=== PATIENT | male | born 1960 | race African-American/Black ===

== ENCOUNTER 2017-10-08 03:52 | Emergency (ER) | payer MEDICARE, MEDICAID ==
[~2017-10-08] VITALS: Ht 160 cm; Wt 62.0 kg
[~2017-10-08 03:52] MED LIST: METO50TA; NAPR-571 PO; NORC10TA2; TIZA4 PO
[2017-10-08 04:08] VITALS: BP 161/88; PULSE 63; RESP 16; TEMP 98.6; O2SAT 97
[2017-10-08] MEDS ORDERED: TETANUS/DIPHTHERIA TOXOID ADULT 0.5 ML VIAL IM ONE (05:15)
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
== END 2017-10-08 05:57 | disposition home or self-care (01) ==
LOC: NEPD 03:52
DX: S71.132A Puncture wound without foreign body, left thigh, initial encounter (principal); X99.1XXA Assault by knife, initial encounter; F14.90 Cocaine use, unspecified, uncomplicated; F12.90 Cannabis use, unspecified, uncomplicated; Z23 Encounter for immunization; Z72.0 Tobacco use
CPT/HCPCS: 90471; 90714

== ENCOUNTER 2017-11-13 16:13 | Emergency (ER) | payer MEDICARE, MEDICAID ==
[~2017-11-13] VITALS: Ht 165.1 cm; Wt 60.0 kg
[2017-11-13 16:25] VITALS: BP 163/112; PULSE 97; RESP 15; TEMP 97.8; O2SAT 99
[2017-11-13 21:42] VITALS: BP 136/86; PULSE 67; RESP 16; O2SAT 97
[2017-11-13] MEDS ORDERED: HYDR-3366 PO (21:43)
[2017-11-13] MEDS ORDERED: METO50TA PO (21:43)
--- NOTE | 2017-11-13 22:14 | PD ---
HPI Chief Complaint: Abdominal Pain Time Seen by Provider: 21:39 Travel History International Travel<30 days: No Contact w/Intl Traveler<30days: No Traveled to known affect area: No History of Present Illness HPI Patient is a 57-year-old male who had a hernia repair on the left inguinal 5 years ago at [facility] he said it was not a laser repair and he has had no problem for 5 years. Now patient is coming in because he said he strained listed something heavy a few days ago and now he is feeling pain pressure-like pain in that left inguinal area again there is no swelling the testicle. There is no pain in the testicle however he has got focal pain similar to that when he had prior to the other hernia repair he had 5 years ago. He is hypertensive but otherwise healthy male patient is in no acute distress when I come in the ER into the exam room. He has focal localized left inguinal pain made worse with walking and straining he did not take anything for the pain and he has not seen another doctor for this pain PFSH Past Medical History Asthma: Yes Blood Disorders: No Heart Rhythm Problems: No Cardiac Catheterization: No Cardiovascular Problems: Yes High Cholesterol: No Congestive Heart Failure: No Diabetes: No Diminished Hearing: No Hypertension: Yes Neurologic: Yes (HEAD INJURY AT AGE 13) Immunizations Current: Yes Myocardial Infarction: No Seizures: Yes (DOES NOT TAKE MEDS FOR SEIZURES) Tetanus Vaccination: < 5 Years Influenza Vaccination: No Past Surgical History Surgical History: No Previous Surgery Coronary Artery Bypass Graft: No Social History Alcohol Use: Yes (OCC) Tobacco Use: Yes (5 CIGARETTES A DAY) Substance Use: Yes (cociane, marijuana) Allergies-Medications (Allergen,Severity, Reaction): Coded Allergies: No Known Allergies (Verified Adverse Reaction, Unknown, 11/13/17) Reported Meds & Prescriptions Reported Meds & Active Scripts Active Reported [place] (Hydrocodone-Acetaminophen) 10-325 Mg Tab 1 Tab PO Q4-6H PRN Metoprolol Tartrate 50 Mg Tab 50 Mg PO DAILY Review of Systems Except as stated in HPI: all other systems reviewed are Neg Physical Exam Narrative GENERAL: no acute distress SKIN: Warm and dry. HEAD: Atraumatic. Normocephalic. EYES: Pupils equal and round. No scleral icterus. No injection or drainage. ENT: No nasal bleeding or discharge. Mucous membranes pink and moist. NECK: Trachea midline. No JVD. CARDIOVASCULAR: Regular rate and rhythm. RESPIRATORY: No accessory muscle use. Clear to auscultation. Breath sounds equal bilaterally. GASTROINTESTINAL: Abdomen soft, non-tender, nondistended. Hepatic and splenic margins not palpable. LEFT inguinal area has slight defect and bowel protrudes only with coughing felt on my finger at direct and indirect canal opening MUSCULOSKELETAL: Extremities without clubbing, cyanosis, or edema. No obvious deformities. NEUROLOGICAL: Awake and alert. No obvious cranial nerve deficits. Motor grossly within normal limits. Five out of 5 muscle strength in the arms and legs. Normal speech. PSYCHIATRIC: Appropriate mood and affect; insight and judgment normal. Data Data Last Documented VS Vital Signs Date Time Temp Pulse Resp B/P (MAP) Pulse Ox O2 Delivery O2 Flow Rate FiO2 11/14/17 03:23 11/14/17 01:30 88 16 98 Room Air 11/13/17 16:25 97.8 Orders Orders Complete Blood Count With Diff (11/13/17 22:09) Comprehensive Metabolic Panel (11/13/17 22:09) Urinalysis - C+S If Indicated (11/13/17 22:09) Ct Abd/Pel W Iv Contrast(Rout) (11/13/17 ) Diatrizoate Liq ( Gastroview Liq) (11/13/17 22:15) Oral Contrast - Adult (11/13/17 22:14) Sodium Chlorid 0.9% 500 Ml Inj (Ns 500 M (11/14/17 02:00) Iohexol 350 Inj (Omnipaque 350 Inj) (11/14/17 02:02) Ketorolac Inj (Toradol Inj) (11/14/17 02:45) Ed Discharge Order (11/14/17 03:16) Labs Laboratory Tests Test 11/13/17 22:30 11/14/17 01:00 White Blood Count 7.5 TH/MM3 Red Blood Count 4.49 MIL/MM3 Hemoglobin 13.4 GM/DL Hematocrit 40.6 % Mean Corpuscular Volume 90.4 FL Mean Corpuscular Hemoglobin 29.9 PG Mean Corpuscular Hemoglobin Concent 33.1 % Red Cell Distribution Width 14.5 % Platelet Count 302 TH/MM3 Mean Platelet Volume 7.1 FL Neutrophils (%) (Auto) 56.2 % Lymphocytes (%) (Auto) 31.8 % Monocytes (%) (Auto) 10.6 % Eosinophils (%) (Auto) 0.8 % Basophils (%) (Auto) 0.6 % Neutrophils # (Auto) 4.2 TH/MM3 Lymphocytes # (Auto) 2.4 TH/MM3 Monocytes # (Auto) 0.8 TH/MM3 Eosinophils # (Auto) 0.1 TH/MM3 Basophils # (Auto) 0.0 TH/MM3 CBC Comment DIFF FINAL Differential Comment Blood Urea Nitrogen 17 MG/DL Creatinine 1.51 MG/DL Random Glucose 106 MG/DL Total Protein 6.9 GM/DL Albumin 3.0 GM/DL Calcium Level 8.5 MG/DL Alkaline Phosphatase 90 U/L Aspartate Amino Transf (AST/SGOT) 23 U/L Alanine Aminotransferase (ALT/SGPT) 18 U/L Total Bilirubin 0.2 MG/DL Sodium Level 142 MEQ/L Potassium Level 4.5 MEQ/L Chloride Level 110 MEQ/L Carbon Dioxide Level 27.3 MEQ/L Anion Gap 5 MEQ/L Estimat Glomerular Filtration Rate 58 ML/MIN Urine Color YELLOW Urine Turbidity CLEAR Urine pH 6.5 Urine Specific [place] 1.016 Urine Protein NEG mg/dL Urine Glucose (UA) NEG mg/dL Urine Ketones NEG mg/dL Urine Occult Blood NEG Urine Nitrite NEG Urine Bilirubin NEG Urine Urobilinogen LESS THAN 2.0 MG/DL Urine Leukocyte Esterase NEG Urine RBC 1 /hpf Urine WBC LESS THAN 1 /hpf Microscopic Urinalysis Comment CULT NOT INDICATED MDM Medical Decision Making Medical Screen Exam Complete: Yes Emergency Medical Condition: Yes Differential Diagnosis groin strin vs inguinal defect vs hernia reducible vs incarcerated hernia Narrative Course CT SHOWS NO HERNIATION OF SMALL BOWELS INTO INGUINAL CANAL IT is a negative CT for hernia pt safe for discharge . Asking for food tolerates PO and discharge to follow up outpt clinic Diagnosis Primary Impression: Groin pain Qualified Codes: R10.32 - Left lower quadrant pain Referrals: Con Rainey MD Patient Instructions: General Instructions, Inguinal Hernia (ED) Disposition: 01 DISCHARGE HOME Condition: Tavares Plasencia MD Nov 13, 2017 22:14
[2017-11-13] MEDS ORDERED: DIATRIZOATE MEGLUM/DIATRIZOATE SOD 9 ML CUP PO ONE (22:15)
[2017-11-13 22:45] LABS: AUTOMATED NEUTROPHIL # 4.2 TH/MM3 (1.8-7.7); BASOPHIL % 0.6 % (0.0-2.0); EOSINOPHIL # 0.1 TH/MM3 (0-0.4); EOSINOPHIL % 0.8 % (0.0-4.0); HEMATOCRIT 40.6 % (39.0-51.0); HEMOGLOBIN 13.4 GM/DL (13.0-17.0); LYMPH % 31.8 % (9.0-44.0); LYMPHOCYTE # 2.4 TH/MM3 (1.0-4.8); MEAN CELL VOLUME 90.4 FL (80.0-100.0); MEAN CORPUSCULAR HEMOGLOBIN 29.9 PG (27.0-34.0); MEAN CORPUSCULAR HGB CONC 33.1 % (32.0-36.0); MEAN PLATELET VOLUME 7.1 FL (7.0-11.0); MONO % 10.6 % (0.0-8.0); MONOCYTE # 0.8 TH/MM3 (0-0.9); NEUT % 56.2 % (16.0-70.0); PLATELET COUNT 302 TH/MM3 (150-450); RED BLOOD COUNT 4.49 MIL/MM3 (4.50-5.90); RED CELL DISTRIBUTION WIDTH 14.5 % (11.6-17.2); WHITE BLOOD COUNT 7.5 TH/MM3 (4.0-11.0)
[2017-11-13 23:16] LABS: ALKALINE PHOSPHATASE 90 U/L (45-117); TOTAL BILIRUBIN ADULT 0.2 MG/DL (0.2-1.0); TOTAL PROTEIN 6.9 GM/DL (6.4-8.2)
[2017-11-13 23:46] LABS: ALT (GPT) 18 U/L (12-78); AST (GOT) 23 U/L (15-37); BICARBONATE 27.3 MEQ/L (21.0-32.0); BLOOD UREA NITROGEN 17 MG/DL (7-18); CALCIUM 8.5 MG/DL (8.5-10.1); CHLORIDE 110 MEQ/L (98-107); CREATININE 1.51 MG/DL (0.60-1.30); GLOMERULAR FILTRATION RATE 58 ML/MIN (>89); GLUCOSE,RANDOM 106 MG/DL (74-106); SODIUM (NA) 142 MEQ/L (136-145)
[2017-11-14 01:11] LABS: BILIRUBIN, URINE NEG (NEG); BLOOD, URINE NEG (NEG); GLUCOSE,URINE NEG (NEG); KETONE, URINE NEG (NEG); NITRITE,URINE NEG (NEG); PH, URINE 6.5 (5.0-8.5); URINE COLOR YELLOW (YELLW/STRAW); URINE LEUKOCYTE ESTERASE NEG (NEG)
[2017-11-14 01:30] VITALS: BP 170/97; PULSE 88; RESP 16; O2SAT 98
[2017-11-14] MEDS ORDERED: SODIUM CHLORID 0.9% 500 ML INJ 500 ML IV ONE (02:00)
[2017-11-14] MEDS ORDERED: IOHEXOL 350 MG/ML 10 ML VIAL (for RAD DIAG) IVCONTRAST ONE (02:02)
--- NOTE | 2017-11-14 02:23 | RADRPT ---
EXAM DATE/TIME: 11/14/2017 01:54 [facility] COMPARISON: No previous studies available for comparison. INDICATIONS : Scrotal swelling and pain. IV CONTRAST: 100 cc Omnipaque 350 (iohexol) IV ORAL CONTRAST: Prescribed oral contrast ingested. RADIATION DOSE: 6.64 CTDIvol (mGy) MEDICAL HISTORY : Hypertension. SURGICAL HISTORY : None. ENCOUNTER: Initial ACUITY: 1 day PAIN SCALE: 7/10 LOCATION: scrotum TECHNIQUE: Volumetric scanning of the abdomen and pelvis was performed. Using automated exposure control and ad justment of the mA and/or kV according to patient size, radiation dose was kept as low as reasonably achievable to obtain optimal diagnostic quality images. DICOM format image data is available electro nically for review and comparison. FINDINGS: LOWER LUNGS: Incompletely seen sizable bleb in the posterior left lung base LIVER: Homogeneous density without lesion. There is no dilation of the biliary tree. No calcified gallston es. SPLEEN: Normal size without lesion. PANCREAS: Within normal limits. KIDNEYS: Normal in size and shape. There is no mass, stone or hydronephrosis. ADRENAL GLANDS: Within normal limits. VASCULAR: There is no aortic aneurysm. BOWEL/MESENTERY: The stomach, small bowel, and colon demonstrate no acute abnormality. There is no free intraperitone al air or fluid. ABDOMINAL WALL: Within normal limits. RETROPERITONEUM: There is no lymphadenopathy. BLADDER: No wall thickening or mass. REPRODUCTIVE: Within normal limits. INGUINAL: There is no lymphadenopathy or hernia. MUSCULOSKELETAL: Within normal limits for patient age. CONCLUSION: No acute CT findings in the abdomen or pelvis. Jayme Disla MD on November 14, 2017 at 2:15 Board Certified Radiologist. This report was verified electronically.
[2017-11-14] MEDS ORDERED: KETOROLAC TROMETHAMINE 30 MG/ML (IVP) VIAL IV PUSH ONE (02:45)
== END 2017-11-14 03:35 | disposition home or self-care (01) ==
LOC: NEPC 16:13
DX: R10.32 Left lower quadrant pain (principal); I10 Essential (primary) hypertension; F17.210 Nicotine dependence, cigarettes, uncomplicated
CPT/HCPCS: 74177; 80053; 81001; 85025; 96374; 99284; J1885; J7040; Q9963; Q9967

== ENCOUNTER 2017-11-30 01:27 | Emergency (ER) | payer MEDICAID, MEDICARE ==
[~2017-11-30] VITALS: Ht 165.1 cm; Wt 65.0 kg
[~2017-11-30 01:27] MED LIST changes: +HYDR-3366 PO; -METO50TA; +METO50TA PO; -NAPR-571 PO; -NORC10TA2; -TIZA4 PO
[2017-11-30 01:47] VITALS: BP 168/86; PULSE 86; RESP 18; TEMP 98.2; O2SAT 97
--- NOTE | 2017-11-30 02:22 | PD ---
HPI Chief Complaint: Injury Time Seen by Provider: 02:21 Travel History International Travel<30 days: No Contact w/Intl Traveler<30days: No Traveled to known affect area: No History of Present Illness HPI 57-year-old male presents emergency department for evaluation of left shoulder pain. Patient states his pain has been present for 1 week. He denies any preceding injury. States pain is worse when he abducts the left shoulder greater than 90. Denies any alterations in sensation. No limitations range of motion. Patient reports pain is constant, moderate in severity. He has no other symptoms to report. PFSH Past Medical History Asthma: Yes Blood Disorders: No Heart Rhythm Problems: No Cardiac Catheterization: No Cardiovascular Problems: Yes High Cholesterol: No Congestive Heart Failure: No Diabetes: No Diminished Hearing: No Hypertension: Yes Neurologic: Yes (HEAD INJURY AT AGE 13) Immunizations Current: Yes Myocardial Infarction: No Seizures: Yes (DOES NOT TAKE MEDS FOR SEIZURES) Tetanus Vaccination: < 5 Years Influenza Vaccination: Yes Past Surgical History Abdominal Surgery: Yes (abd hernia repair) Coronary Artery Bypass Graft: No Social History Alcohol Use: Yes (OCC) Tobacco Use: Yes (5 CIGARETTES A DAY) Substance Use: Yes (cociane, marijuana) Allergies-Medications (Allergen,Severity, Reaction): Coded Allergies: No Known Allergies (Verified Adverse Reaction, Unknown, 11/30/17) Reported Meds & Prescriptions Reported Meds & Active Scripts Active Reported [place] (Hydrocodone-Acetaminophen) 10-325 Mg Tab 1 Tab PO Q4-6H PRN Metoprolol Tartrate 50 Mg Tab 50 Mg PO DAILY Review of Systems Except as stated in HPI: all other systems reviewed are Neg Physical Exam Narrative GENERAL: Well-nourished, well-developed male patient in no acute distress SKIN: Focused skin assessment warm/dry. HEAD: Normocephalic. EYES: No scleral icterus. No injection or drainage. NECK: Supple, trachea midline. No JVD or lymphadenopathy. CARDIOVASCULAR: Regular rate and rhythm without murmurs, gallops, or rubs. RESPIRATORY: Breath sounds equal bilaterally. No accessory muscle use. MUSCULOSKELETAL: No cyanosis, or edema. Tenderness to palpation of the anterior lateral aspect of the left shoulder. Patient reports pain with passive range of motion greater than 90. Distal pulses are palpable. Cap refills within normal limits. BACK: Nontender without obvious deformity. No CVA tenderness. Data Data Last Documented VS Vital Signs Date Time Temp Pulse Resp B/P (MAP) Pulse Ox O2 Delivery O2 Flow Rate FiO2 11/30/17 01:47 98.2 86 18 168/86 (113) 97 Orders Orders Shoulder, Complete (>2vws) (11/30/17 ) Ed Discharge Order (11/30/17 03:05) MDM Medical Decision Making Medical Screen Exam Complete: Yes Emergency Medical Condition: Yes Medical Record Reviewed: Yes Differential Diagnosis Osteoarthritis versus bursitis versus shoulder strain versus ligamentous injury Narrative Course 57-year-old male presents emergency department for evaluation of left shoulder pain. X-ray imaging is negative for acute bony abnormality. Patient appears without distress. Vital signs are stable. He is encouraged to take over-the- counter ibuprofen and follow-up with his primary care provider. Patient agrees to return immediately with acute worsening symptoms. Diagnosis Primary Impression: Left shoulder pain Qualified Codes: M25.512 - Pain in left shoulder Referrals: Orthopaedic Surgeon Primary Care Physician Patient Instructions: General Instructions, Shoulder Pain (ED) Additional Instructions: Ice and/or moist heat may help to alleviate symptoms [id number] ibuprofen as directed on the package as needed for pain Follow-up the primary care provider Seek orthopedic evaluation if symptoms persist Outpatient MRI may be warranted Return immediately with acute worsening symptoms Med/Other Pt SpecificInfo: No Change to Meds Disposition: 01 DISCHARGE HOME Condition: Stable Aurora Kelley Nov 30, 2017 02:22
--- NOTE | 2017-11-30 02:52 | RADRPT ---
EXAM DATE/TIME: 11/30/2017 02:38 [facility] COMPARISON: SHOULDER LEFT COMPLETE (>2VWS), February 20, 2015, 12:57. INDICATIONS : Left shoulder pain, no injury. MEDICAL HISTORY : Hypertension. SURGICAL HISTORY : None. ENCOUNTER: Initial ACUITY: 1 day PAIN SCORE: 3/10 LOCATION: Left shoulder FINDINGS: Multiple view examination of the left shoulder demonstrates no evidence of fracture or dislocation. The glenohumeral and acromioclavicular joints are maintained. There is normal range of motion betwee n internal and external rotation. The visualized left upper ribs are intact. The Bony mineralizatio n is normal. CONCLUSION: Negative exam. Selvin Loya MD on November 30, 2017 at 2:45 Board Certified Radiologist. This report was verified electronically.
== END 2017-11-30 03:16 | disposition home or self-care (01) ==
LOC: NEPD 01:27
DX: M25.512 Pain in left shoulder (principal); J45.909 Unspecified asthma, uncomplicated; I10 Essential (primary) hypertension; F17.210 Nicotine dependence, cigarettes, uncomplicated
CPT/HCPCS: 73030; 99283